=== PATIENT | female | born 1985 | race Caucasian/White ===

== ENCOUNTER 2025-04-23 09:55 | Emergency (ER) | payer OTHER, SELFPAY ==
[2025-04-23] VITALS (7 sets, daily range): BP systolic 92–110; BP diastolic 60–78; BMI 25.5
--- NOTE | 2025-04-23 12:50 | ED.GENMED ---
History of Present Illness
General
Chief Complaint: Dizziness
Source: patient
Exam Limitations: none
Time Seen by Provider: 04/23/25 11:57
Nursing documentation reviewed up to this point in time: agreed with
History of Present Illness
History of Present Illness:
39-year-old female with history as noted presents to the ER for evaluation of dizziness. Patient reports that symptoms started yesterday evening and they have been constant since that time. She reports feeling lightheaded and mildly off balance.
She reports that symptoms are worse when she changes position particularly when she stands. She says that she has some associated feeling of flushing in the face as well as some palpitations when she changes position. She says she has had some
mild chest discomfort that she says that she is not sure whether this is from anxiety or related to her symptoms. She decided to come to the ER to be evaluated. She does note that she was outside all day yesterday as her children had many friends
over and were planning a large game of [employer] football. She has not had any recent fevers or chills or coughing. She denies any swelling or pain in the legs. She denies any recent GI illness. She says she has not had similar symptoms in the past.
She denies any known personal or family history of significant heart issues.
Review of Systems
Review of Systems
All Other Systems: ROS reviewed and negative except as documented in HPI and ROS
Constitutional: Reports fatigue; Denies fever
Respiratory: Denies cough or trouble breathing
Cardiac: Reports chest pain and palpitations
ABD/GI: Denies abdominal pain, nausea or vomiting
: Denies flank pain
Musculoskeletal: Denies neck pain or back pain
Neurological: Reports dizzy; Denies headache
Phy Exam
Physical Exam
Physical Exam:
General: Awake, alert, oriented x3; no acute distress
Head: Normocephalic, atraumatic
Eyes: Conjunctiva normal, sclera anicteric
Throat: Airway intact, handling secretions
Neck: Trachea midline, supple without meningismus
Lungs: Clear to auscultation bilaterally, no wheezing, rales, rhonchi
Heart: Tachycardia with regular rhythm, no murmurs, gallops, or rubs
Abd: Soft, non distended, nontender
Neuro: Cranial nerves grossly intact, speech fluid, motor and sensory grossly intact
Skin: Warm and dry
Extremities: No edema in extremities, no calf tenderness, equal pulses in all extremities
Scores
Heart Failure Risk
Heart Failure Risk Score: Not Applicable
Heart Score for Chest Pain Patients
STEMI patient?: Not applicable
Withdrawal Assessment of Alcohol
Withdrawal Assessment Completed?: Not applicable
Course
Orders/Labs/Results
Orders:
Orders
04/23/25 10:02
ECG [Electrocardiogram (*1)] Urgent
Reason for Study: Vertigo / Dizzy
EKG- Treatment ONCE
04/23/25 12:02
Test Result ONCE
04/23/25 12:35
Complete Blood Count/With Diff Urgent
Comprehensive Metabolic Panel Urgent
D-Dimer Urgent
HCG, Serum Qualitative Screen Urgent
Troponin I Urgent
04/23/25 12:42
0.9% Sodium Chloride 1000 ml [Nss] 1,000 ml IV BOLUS
04/23/25 12:55
CR Chest - 2 Views Urgent
Comment:
Reason For Exam: chest pain
Abnormal Lab Results
04/23/25
12:35
MPV 11.3 H fL
(7.4-10.4)
04/23/25 12:35
04/23/25 12:35
Vital Signs
Initial and Last Documented VS:
Initial Vital Signs
Temp Pulse Resp BP Pulse Ox
36.7 C 106 18 95/78 100
04/23/25 09:58 04/23/25 09:58 04/23/25 09:58 04/23/25 09:58 04/23/25 09:58
Last Documented Vital Signs
Temp Pulse Resp BP Pulse Ox
37.0 C 97 18 103/70 100
04/23/25 11:54 04/23/25 12:00 04/23/25 12:00 04/23/25 12:00 04/23/25 12:55
MDM/Problems Addressed
Differential Diagnosis Includes:
Dehydration, electrolyte abnormality, anemia, dysrhythmia; ACS, PE considered less likely clinically; no murmur to suggest valvular disease
MDM/Problems Addressed:
39-year-old female presents to the ER for evaluation of dizziness most pronounced with positional changes associated with palpitations and flushing of the face as well as some mild chest discomfort. She is tachycardic but otherwise acceptable vital
signs. Physical exam is as noted. Overall I suspect she is likely dehydrated she says she was outside most of the day yesterday and symptoms seem consistently positional. Nevertheless we will plan to check labs to rule out anemia or significant
electrolyte abnormality. Will check a troponin in an abundance of caution although with no significant EKG changes and consistent chest discomfort since yesterday very low suspicion that this is an ACS. Will check D-dimer given her tachycardia.
Will check a chest x-ray. Will provide IV fluids. Monitor closely reassess after the above.
Initial labs reviewed: CBC and CMP no clinically significant abnormalities. Troponin undetectable. D-dimer negative. Awaiting results of chest x-ray. Fluids in progress. Vitals remain stable.
Chest x-ray shows no acute disease. Clinical reassessment vitals improved, patient feeling better. Suspect likely some mild dehydration. Stable for discharge can follow-up with her primary doctor. Patient comfortable with this plan. All
questions answered.
*Pulse Oximetry
SaO2: 100
Oxygen Mode of Delivery: Room air
Patient hypoxic: no (100%)
*EKG
Interpreted by ED Provider?: Yes
Heart Rate: 102
Rate: tachycardiac
Rhythm: sinus and sinus tachycardia
[place]: normal axis
Interval: normal interval
QRS Pattern: normal QRS
Ischemia: no ischemia
*Critical Care Note
Total Time (30-74mins, 75-104mins- exclusive of procedures): Not Applicable
Data Reviewed
Source: patient
ED Attending Note
-
Portions of this chart may have been created with voice recognition software.� Occasional wrong word or��sound alike� substitutions may have occurred due to the inherent limitations of voice recognition software.
Discharge Plan
Departure
Patient Disposition: Home (Routine Discharge)
Date of Disposition: 04/23/25
Time of Disposition: 14:15
Patient with high blood pressure during this ER visit?: No
Discharge Problem:
Dizziness, Palpitations
Instructions: Dehydration in adults - ED (DC)
Referrals:
Megan Sauceda CRNP [Family Provider, Family Practice] - Follow up in 1 week
Activity Restrictions/Additional Instructions:
Thank you for visiting the Emergency Department at [facility].
1. Please schedule a follow up appointment as directed. Call first thing tomorrow morning to make an appointment.
2. If indicated, please take your medications as instructed and indicated on discharge paperwork.
3. If any of your symptoms do not improve, or persist, or become more severe within 6-12 hours, please return to the emergency department for further care.
4. Please return to the emergency department if you develop a headache, neck pain/stiffness, fever greater than 100.4F, chest pain, shortness of breath, persistent nausea, vomiting, slurred speech, difficulty walking, numbness/tingling, weakness,
signs of infection or any other symptoms that are worrisome to you.
Please call [phone] if you have any questions.
Interventions
Interventions:
*Risk Screen - Suicide Last Done: 04/23/25 09:58
*General Assessment Last Done: 04/23/25 09:58
*Neglect/Abuse Screening Last Done: 04/23/25 09:58
*ED- Fall Risk Assessment Last Done: 04/23/25 11:54
*ED COVID-19 Vaccine History Last Done: 04/23/25 11:54
*ED Influenza Vaccine History Last Done: 04/23/25 11:54
ED- Neurological Assessment Last Done: 04/23/25 11:54
ED- Cardiac Assessment Last Done: 04/23/25 11:54
Discharge Date and Time
Print Language: SERBIAN
[2025-04-23 12:55] LABS: Hematocrit 40.0 % (37.0-47.0); Hemoglobin 13.6 g/dL (12.0-16.0); Mean Corp Hgb Conc. 34.0 g/dL (33.0-37.0); Mean Corpuscular Volume 82.8 fL (81.0-99.0); Nucleated Red Blood Cells % 0 %; Platelet Count 188 10^3/uL (130-400); Red Cell Dist. Width 12.8 % (11.5-14.5)
[2025-04-23 13:10] LABS: D-Dimer < 0.27 ug/mlFEU (0.00-0.50)
[2025-04-23 13:16] LABS: ALT (SGPT) 13 U/L (0-35); AST (SGOT) 17 U/L (14-36); Albumin 4.6 g/dl (3.5-5.0); Alkaline Phosphatase 50 U/L (38-126); Blood Urea Nitrogen 14 mg/dl (7-17); Calcium 9.6 mg/dl (8.4-10.2); Carbon Dioxide 25 mmol/L (22-30); Chloride 107 mmol/L (98-107); Estimated Creatinine Clearance 100 ml/min; Glucose 83 mg/dl (70-99); Potassium 4.5 mmol/L (3.5-5.1); Sodium 138 mmol/L (135-145); Total Protein 7.1 g/dl (6.3-8.2); eGFR > 60.00
[2025-04-23 13:25] LABS: Troponin I < 0.012 ng/ml
[2025-04-23] MEDS: NSS 1000 IV (13:32)
[2025-04-23 13:41] LABS: HCG, Serum Qualitative Screen Negative
== END 2025-04-23 14:48 | disposition home or self-care (01) ==
LOC: EMR 09:55
PROVIDERS: EMERGENCY PHYSICIAN Emergency Medicine; FAMILY PHYSICIAN Registered Nurse
DX: R42 Dizziness and giddiness (principal); R00.2 Palpitations; R00.0 Tachycardia, unspecified
CPT/HCPCS: 99284; 71046; 80053; 84484; 84703; 85025; 85379; 93005